=== PATIENT | male | born 1955 | race Caucasian/White ===

== ENCOUNTER → 2018-11-27 | Outpatient (CLI) | payer MEDICARE, OTHER | LOC: COL.RAD 08:15 | DX: J43.9 Emphysema, unspecified (principal); J44.9 Chronic obstructive pulmonary disease, unspecified; R93.89 Abnormal findings on diagnostic imaging of other specified body structures ==

== ENCOUNTER 2019-11-23 13:22 | Emergency (ER) | payer MEDICARE, OTHER ==
[~2019-11-23] VITALS: Ht 172.7 cm; Wt 62.7 kg
[2019-11-23 13:35] VITALS: TEMP 99.1
[2019-11-23] MEDS ORDERED: LIPITOR 40MG TA40 MG PO (13:47)
[2019-11-23] MEDS ORDERED: TRELEGY ELLIPT1 EACH IH (13:47)
[2019-11-23] MEDS ORDERED: LEXAPRO20 MG PO (13:48)
[2019-11-23] MEDS ORDERED: FLOMAX 0.40.4 MG/CAP PO (13:48)
[2019-11-23] MEDS ORDERED: AMOXICILLIN 8751 TAB PO (14:25)
[2019-11-23 15:14] VITALS: BP 119/73; PULSE 80
== END 2019-11-23 15:13 | disposition home or self-care (01) ==
LOC: COL.ER 13:22
DX: S51.851A Open bite of right forearm, initial encounter (principal); J44.9 Chronic obstructive pulmonary disease, unspecified; F17.200 Nicotine dependence, unspecified, uncomplicated; W54.0XXA Bitten by dog, initial encounter; Y92.009 Unspecified place in unspecified non-institutional (private) residence as the place of occurrence of the external cause

== ENCOUNTER → 2020-06-09 | Outpatient (CLI) | payer MEDICARE, OTHER ==
[~2020-06-09] MED LIST: AMOXICILLIN 8751 TAB PO; FLOMAX 0.40.4 MG/CAP PO; LEXAPRO20 MG PO; LIPITOR 40MG TA40 MG PO; TRELEGY ELLIPT1 EACH IH
== END ==
LOC: COL.RAD 12:41
DX: E04.1 Nontoxic single thyroid nodule (principal)

== ENCOUNTER → 2020-06-25 | Outpatient (CLI) | payer MEDICARE, OTHER ==
--- NOTE | 2020-06-20 12:53 | NUR ---
VOICEMAIL IS FULL AND UNABLE TO LEAVE A MSG
[~2020-06-25] MED LIST changes: +ASPIRIN 81M81 MG/TA2 PO
== END ==
LOC: COL.RAD 07:00
DX: E03.9 Hypothyroidism, unspecified (principal)

== ENCOUNTER → 2020-07-03 | Outpatient (CLI) | payer MEDICARE, OTHER ==
[~2020-07-03] VITALS: Ht 172.7 cm; Wt 57.6 kg
[2020-07-03 14:22] VITALS: BP 151/96; PULSE 90
[2020-07-03 15:30] VITALS: BP 117/79; PULSE 95
== END ==
LOC: COL.RAD
DX: E04.1 Nontoxic single thyroid nodule (principal)

== ENCOUNTER → 2020-09-17 | Outpatient (CLI) | payer MEDICARE, OTHER | LOC: COL.RAD 13:20 | DX: M47.812 Spondylosis without myelopathy or radiculopathy, cervical region (principal) ==

== ENCOUNTER → 2020-11-05 | Outpatient (CLI) | payer MEDICARE, OTHER | LOC: COL.RAD 10:03 | DX: Z12.2 Encounter for screening for malignant neoplasm of respiratory organs (principal); J44.9 Chronic obstructive pulmonary disease, unspecified; E04.1 Nontoxic single thyroid nodule; J98.4 Other disorders of lung; F17.200 Nicotine dependence, unspecified, uncomplicated; Z98.890 Other specified postprocedural states ==

== ENCOUNTER → 2022-01-06 | Outpatient (CLI) | payer MEDICARE | LOC: COL.RAD 14:08 | DX: J43.9 Emphysema, unspecified (principal); J98.4 Other disorders of lung; Z87.891 Personal history of nicotine dependence ==